=== PATIENT | female | born 1995 | race Caucasian/White ===

== ENCOUNTER 2021-01-12 13:49 | Emergency (ER) | payer SELFPAY ==
[~2021-01-12] VITALS: Ht 154.9 cm; Wt 90.9 kg
[2021-01-12 14:26] VITALS: BP 121/78
== END 2021-01-12 14:30 | disposition left against medical advice (07) ==
LOC: ER 13:49
DX: Z53.21 Procedure and treatment not carried out due to patient leaving prior to being seen by health care provider (principal)